=== PATIENT | female | born 1980 | race African-American/Black ===

== ENCOUNTER 2020-07-20 15:08 | Observation (INO) | payer MEDICAID ==
[~2020-07-20] VITALS: Ht 165.1 cm; Wt 119.3 kg
[2020-07-20] MEDS ORDERED: LABE100T5 PO (15:54)
[2020-07-20] MEDS ORDERED: PREN-55 PO (15:54)
[2020-07-20] MEDS ORDERED: INSU100I28 SQ (15:54)
[2020-07-20] MEDS ORDERED: LACTATED RINGERS 1,000 ML IV SCH (17:45)
== END 2020-07-20 18:50 | disposition home or self-care (01) ==
LOC: 8 EST LDRP 15:08
PROVIDERS: ADMIT Obstetrics & Gynecology; ATTEND Obstetrics & Gynecology
DX: Z36.83 Encounter for fetal screening for congenital cardiac abnormalities (principal); Z3A.37 37 weeks gestation of pregnancy
CPT/HCPCS: 59025; 76805; 76818; 96360; G0378; 99281

== ENCOUNTER 2020-07-23 16:21 | Observation (INO) | payer MEDICAID ==
[~2020-07-23] VITALS: Ht 165.1 cm; Wt 120.2 kg
[~2020-07-23 16:21] MED LIST: INSU100I28 SQ; LABE100T5 PO; PREN-55 PO
== END 2020-07-23 20:30 | disposition home or self-care (01) ==
LOC: 8 EST LDRP 16:21
PROVIDERS: ADMIT Obstetrics & Gynecology; ATTEND Obstetrics & Gynecology
DX: Z34.93 Encounter for supervision of normal pregnancy, unspecified, third trimester (principal); Z3A.38 38 weeks gestation of pregnancy
CPT/HCPCS: 59025; 76815; 76818; G0378

== ENCOUNTER → 2020-07-25 | Outpatient (CLI) | payer MEDICAID | END | disposition home or self-care (01) | LOC: LAB 09:00 | PROVIDERS: ATTEND Obstetrics & Gynecology | DX: Z01.812 Encounter for preprocedural laboratory examination (principal); Z20.828 Contact with and (suspected) exposure to other viral communicable diseases | CPT/HCPCS: C9803; U0003 ==